=== PATIENT | female | born 1985 | race Caucasian/White ===

== ENCOUNTER 2016-07-11 22:24 | Emergency (ER) | payer SELFPAY ==
[2016-07-11] MEDS ORDERED: KETOROLAC TROMETHAMINE 60 MG/2 ML VIAL IM ONE (22:39)
--- NOTE | 2016-07-11 23:00 | ED Physician Documentation ---
Female Urogenital Problems - HISTORIAN Historian: patient - HPI Stated Complaint: burning with urination Chief Complaint: Female Urogenital Problems Further Comments: yes (31 year old female patient presents with complaints of dysuria and blood in urine. Patient states she is on flagyl for a "yeast infection". Patient reports being on multiple antibiotics for the past month for her rash. Patient states the rash has been on going for the past month. Patient brought in from [facility] in handcuffs.) - Associated Symptoms Urinary Symptoms: discomfort w/ urination, pain w/ urination Discharge: denies: vaginal discharge, vaginal fluid leakage, odorous discharge, yellowish discharge - ROS CONST: none GI/: nausea CVS/RESP: none EYES/ENT: none NEURO/PSYCH: none MS/SKIN/LYMPH: rash - PAST HX Past History: none Surgeries/Procedures: , hysterectomy Allergies/Adverse Reactions: Allergies Allergy/AdvReac Type Severity Reaction Status Date / Time No Known Allergies Allergy Verified 07/11/16 22:49 Home Medications: Ambulatory Orders Medication Instructions Recorded NK [NK] 07/11/16 - SOCIAL HX Smoking History: cigarettes - FAMILY HX Family History: denies: none - VITAL SIGNS Vital Signs: Vital Signs Temp Pulse Resp BP Pulse Ox 98.2 F 84 20 99 07/11/16 22:24 07/11/16 22:24 07/11/16 22:24 07/11/16 22:24 - REVIEWED ASSESSMENTS Nursing Assessment Reviewed: Yes Vitals Reviewed: Yes ED Results Lab/Radiology - Orders Orders: ED Orders Category Date Time Status Ketorolac Tromethamine [Toradol] Med 07/11/16 22:39 Discontinued 60 mg IM NOW ONE Female Urogenital Problems - EXAM General Appearance: no acute distress, alert EENT: eye inspection normal, PAMELA Respiratory: no resp. distress, breath sounds nml CVS: reg rate & rhythm, heart sounds normal, equal pulses, no murmur, no gallop , PMI nml, no JVD, no friction rub, 24 Abdomen: soft, non-tender, no organomegaly, no distention, nml bowel sounds Pelvic: deferred (patient refused vaginal exam) Back: non-tender, painless ROM Skin: color nml, no rash, warm,dry Extremities: non-tender, normal range of motion, no evidence of injury, no edema , J, [employer] Neuro: oriented X3, CN's nml as tested, motor nml, sensation nml, mood/affect nml Discharge Clincal Impression: Dysuria Referrals: Primary Doctor,No [Primary Care Provider] - 2 Days Additional Instructions: over the counter vagisil cream as needed for vaginal pain and itching. tylenol every 4 hours as needed Home Medications: Ambulatory Orders NK [NK] 07/11/16 Condition: Stable Disposition: 01 HOME, SELF-CARE Decision to Admit: NO Decision Time: 23:00
[2016-07-11 23:28] VITALS: BP 125/80
[2016-07-12 05:39] LABS: APPEARANCE,URINE CLOUDY (CLEAR); COLOR,URINE YELLOW (YELLOW); OCCULT BLOOD,URINE NEGATIVE (NEGATIVE); UROBILINOGEN URINE 0.2 Eu (0.2-1.0)
== END 2016-07-11 23:09 | disposition home or self-care (01) ==
LOC: ED 22:24
DX: R30.0 Dysuria (principal)
CPT/HCPCS: 81002; J1885; 96372; 99282; 99283